=== PATIENT | female | born 1990 | race Caucasian/White ===

== ENCOUNTER → 2021-01-17 16:34 | Outpatient (CLI) | payer MEDICAID, SELFPAY ==
[2021-01-17 15:26] VITALS: BMI 35.5
== END ==
PROVIDERS: PCP Family Medicine; Referring Provider Nurse Practitioner Women's Health; Visit Provider Nurse Practitioner Women's Health
DX: S21.001A Unspecified open wound of right breast, initial encounter (principal)
CPT/HCPCS: 87070; 87077; 87186; 87205

== ENCOUNTER 2021-01-26 09:15 | Outpatient (RCR) | payer MEDICAID, SELFPAY ==
[2021-01-17 15:26] VITALS: BMI 35.5
[2021-01-19 08:11] VITALS: BP 130/68; PULSE 83; RESP 18; TEMP 37; BMI 45.3
[2021-01-19 10:52] LABS: Erythrocyte Sedimentation Rate 11 mm/hr (0-30)
[2021-01-19 10:54] LABS: Absolute Lymphocyte Count 2.29 X10^3/uL (0.83-4.51); Absolute Neutrophil Count 6.8 X10^3/uL (2.0-7.7); Basophil# 0.06 X10^3/uL; Basophil% 0.6 % (0-1); Eosinophil# 0.46 X10^3/uL; Eosinophils% 4.4 % (0-5); Hematocrit 40.3 % (37-47); Hemoglobin 13.6 g/dL (12.0-15.0); Lymphocyte # 2.29 X10^3/ul (0.83-4.51); Lymphocyte % 21.9 % (19-41); Mean Corp Hgb Conc 33.7 g/dL (32-36); Mean Corpuscular Hgb 30.6 pg (27.0-32.0); Mean Corpuscular Volume 90.8 fL (81-99); Mean Platelet Vol. 10.7 fl (6.2-12.0); Monocyte# 0.85 X10^3/uL; Monocyte% 8.1 % (0-10); NRBC Flagged by Analyzer 0 % (0-5); Neutrophil # 6.78 X10^3/uL (2.7-7.7); Neutrophil % 64.6 % (47-70); Platelet Count 337 K/mm3 (150-450); RBC Distribution Width CV 11.6 % (11.6-14.6); RBC Distribution Width SD 38.6 fl (35.1-43.9); Red Blood Count 4.44 M/mm3 (4.2-5.4); White Blood Count 10.5 K/mm3 (4.4-11.0)
--- NOTE | 2021-01-19 12:29 | HP.PCM_ITS ---
History of Present Illness Date of Service: 01/19/21 Chief Complaint: Right breast wound History of Wound: Mariely is a pleasant 30-year-old female who presents to the wound healing center today (01/19/2021) for an initial evaluation of a right breast wound. Her past medical history is unremarkable aside from a mild developmental delay. She has no history of similar or nonhealing wounds. She does not have any history of diabetes or tobacco use. On 01/02/2021, while on vacation in [place], she reported redness and itching of the right breast. She was seen by her women's health provider (KASIA Riley) on 01/04/2021 and was given clotrimazole?betamethasone 1-0.05% to apply twice daily x2 weeks. Within the week that followed, the redness was not improving and a prescription for oral fluconazole was sent. The redness continued to worsen and the area had developed open areas of excoriation at her exam on 01/17/2021 with [facility]. A culture was collected on 01/17/2021. The preliminary results show 2+ GPC possible Enterococcus species and 1+ Staphylococcus species with identification and sensitivity to follow. She was started on Bactrim. Her mother reports that the time of her adoption she was told that the patient has an allergy to sulfa antibiotics. She has not noticed any reaction in the last 2 days with taking Bactrim. The patient has not been using any dressings to the breast, as she was instructed to leave it open to air. She has generally not been wearing a bra, but on the rare occasions that she has there has been nonodorous drainage on the bra. The patient denies fever, chills, nausea, vomiting, or diarrhea. The patient has not had purulent/malodorous drainage from affected area. [facility] Medical History (Updated 01/19/21 @ 12:54 by Ashley Soto NP, [employer] [facility]) Developmental delay, mild Dysmenorrhea Home Medications multivitamin with folic acid 1 tab PO DAILY 12/26/14 [History Last Taken Unknown] norgestimate 0.25 mg-ethinyl estradiol 35 mcg tablet 1 tab PO DAILY #84 tab 02/14/20 [Rx Last Taken Unknown] doxycycline monohydrate 100 mg PO BID 10 Days #20 cap 01/19/21 [Rx Last Taken Unknown] Allergy/AdvReac Type Severity Reaction Status Date / Time Sulfa (Sulfonamide Allergy Unknown Verified 01/17/21 15:22 Antibiotics) Social History current occupational status: employed current occupation: [employer] Smoking Status: Never smoker alcohol intake: never substance use type: does not use seatbelt use: always do you feel safe at home: Yes ROS Constitutional Constitutional: Denies chills, fever(s) or night sweats Eyes Eyes: Denies change in vision or double vision ENT HEENT: Denies lip swelling or tongue swelling Cardiovascular Cardiovascular: Denies chest pain, leg edema or palpitations Respiratory/Chest Respiratory/Chest: Denies cough, shortness of breath at rest, shortness of breath with exertion or wheezing Gastrointestinal Gastrointestinal: Denies diarrhea, nausea or vomiting Genitourinary Genitourinary: Denies dysuria or hematuria Musculoskeletal Musculoskeletal: Denies abnormal gait, extremity pain, muscle weakness, numbness or tingling Integumentary Integumentary: Reports wounds; Denies rash Neurologic Neurologic: Denies abnormal gait, abnormal speech or focal weakness Endocrine Endocrinology: Denies cold intolerance, heat intolerance, polydipsia or polyuria Hematologic/Lymphatic Hematologic/Lymphatic: Denies easy bleeding or easy bruising Vital Signs Vital Signs Vital Signs: 01/19/21 08:11 Temperature 98.6 F Temperature Source Temporal Pulse Rate 83 Respiratory Rate 18 Blood Pressure 130/68 H Blood Pressure Mean 88 Blood Pressure Source Monitor Physical Exam Const alert, no apparent distress and healthy appearing General Appearance: cooperative, comfortable and well kempt HEENT Head and Scalp: normocephalic and atraumatic Eyes EOMs intact bilaterally Neck supple and no JVD Chest Nipple/Areola: No nipple discharge Resp normal respiratory effort, normal air movement and no use of accessory muscles Auscultation: clear to auscultation bilaterally; Negative for crackles, rales, rhonchi or wheezes Cardio regular rate and regular rhythm GI normal to inspection, nondistended, normoactive bowel sounds Extremity normal capillary refill, no joint enlargement, no clubbing, cyanosis or edema, no calf tenderness and no pedal edema Peripheral Pulses: Yes dorsalis pedis pulses present bilateral 2+ Skin Wounds: wounds noted No malodorous, open and surrounding erythema Wound Narrative: The patient has a large wound to the underside of the right breast with the subcutaneous layer exposed, and multiple small skin islands present. There is a small to moderate amount of slough and devitalized tissue present. There is mild warmth to palpation and tenderness to palpation. There is no malodorous drainage or purulent drainage noted. The wound does not have tunneling or undermining. Neuro moves all extremities and no focal motor deficits Psych mental status grossly normal, cooperative and affect normal Debridement Note Debridement Note Post-Debridement Measurements and Additional Note: Post-Debridement Measurements/Treatment - Nurse 1 - General Ulcer Assessment Start: 01/19/21 08:02 Freq: Status: Active Protocol: ANGUS.SULEMA Activity Type Activity Date Activity User E-Sign Co-Sign Detail Recorded Client Recorded Date Recorded By Document 01/19/21 08:11 DL Desktop 01/19/21 08:25 DL 01/19/21 08:11 - Today's Visit Information Type of service Initial Visit Arrival Mode Cane Transfer Assistance Stretcher Patient Identification Verified (Name & Yes ) Patient Requires Transmission-Based No Precautions Height and Weight Height 5 ft Weight 232 lb 7.559 oz Weight in Pounds 232.5 lbs Body Mass Index (BMI) 45.3 BMI Classification Obese BSA - Elizabeth 1.99 Vital Signs Temperature (97.8 F-99.1 F) 98.6 F Temperature Source Temporal Pulse Rate (60-100) 83 Pulse Location Monitor Respiratory Rate (12-18) 18 Respiratory rate source Observation Blood Pressure (90/60-120/80) 130/68 H Blood Pressure Mean 88 Source Monitor Pain Scale: 0-10 Numeric Is Patient Pain Free? Yes Communication Assessment Preferred language Khmer Able to Read Yes Able to Write No Communication Tools None Caregiver Communication Skills No Impairment Impairment Right Hearing Abillity Normal Left Hearing Abillity Normal Visual Assistive Devices Glasses Teaching Assessment Preferences Verbal,Written, Demonstration Barriers to Learning None Readiness To Learn Fair Willingness to Engage in Self Management Med Activies Readiness to Engage in Self Management Med Activities Anxiety Level Calm Cooperation Cooperative Perception Coherent Interest in Health Problem Asks Questions Education Importance Acknowledges Need Does Patient Smoke tobacco or other No substances Smoking Status Never smoker Is Patient Diabetic Yes Functional Assessment Recent Decline in Ability to Perform Denies Any Declines Culture/Jehovah'S Witness/Vice President Mission Integration Cultural/Jehovah'S Witness Needs that may affect No Treatment Plan Would you allow our hospital economic development director to No meet you for the purpose of spiritual/ emotional support? Vice President Mission Integration to contact place of latter-day No Teaching: Wound Center Discharge Instructions -Person Taught Patient *Infection -Person Taught Patient Diagnostic Tests Ordered -Person Taught Patient Dressing Your Wound -Person Taught Patient *Welcome to the Wound Center -Person Taught Family WC - Nurse 1 - General Ulcer Measurement Start: 01/19/21 08:02 Freq: Status: Active Protocol: Activity Type Activity Date Activity User E-Sign Co-Sign Detail Recorded Client Recorded Date Recorded By Document 01/19/21 08:11 DL Desktop 01/19/21 08:25 DL 01/19/21 08:11 Wound Center Nurse 1 #1 R Breast -Current Size (cm) - Length 3.7 -Current Size (cm) - Width 9.6 -Current Size (cm) - Depth 0.2 -Total Square Cm 35.52 -Photo Taken Yes -Exudate Amt Medium -Exudate Type Serosanguineous -Wound Margin Distinct, Outline Attached -Granulation Amt Medium (34-66%) -Necrosis Amt Medium (34-66%) -Necrotic Tissue Type Adherent Slough -Structure Exposed N/A -Texture (Cassie-wound Skin Appearance) Localized Edema ,Scarring -Moisture (Cassie-wound Skin Appearance) No Abnormality -Color (Cassie-wound Skin Appearance) Erythema -Temperature (Cassie-wound Skin No Abnormality Appearance) (Pt Warm) -Tenderness on Palpation (Cassie-wound No Skin Appearance) -Ulcer Cleansing Wound Cleanser -Foul Odor after Cleansing No -Anesthetic Used 4% Lidocaine Solution WC - Nurse 2 - General Ulcer CM Notes Start: 01/19/21 08:02 Freq: Status: Active Protocol: Activity Type Activity Date Activity User E-Sign Co-Sign Detail Recorded Client Recorded Date Recorded By Document 01/19/21 09:24 DL Desktop 01/19/21 09:27 DL 01/19/21 09:24 Wound Center Nurse 2 -Correct Patient Yes -Correct Side, Site, Position Yes -Correct Procedure Yes -Procedure Performed Yes -Type of Procedure Debridement -Clinical Debridement Subcutaneous -Tissue Removed Subcutaneous -Post Debridement (cm) - Length 6 -Post Debridement (cm) - Width 10 -Post Debridement (cm) - Depth 0.1 -Total Square (Post) (cm) 60 -Area of Debridement (cm) - Length 6 -Area of Debridement (cm) - Width 10 -Total Square (Area) (cm) 60 -Tunneling No -Undermining/Tunneling No -Circular Undermining No -Ulcer Cleansing Wound Cleanser -Foul Odor after Cleansing No -Bioengineered Tissue No -Debridement - Open, 1st 20sq cm Yes -Debridement - Subq, 1st 20sq cm Yes -Debridement, SubQ, ea addt'l 20sq cm 2 or part thereof Pain Scale: 0-10 Numeric Is Patient Pain Free? Yes WC - Nurse 3 - General Ulcer D/C NN Start: 01/19/21 08:02 Freq: Status: Active Protocol: Activity Type Activity Date Activity User E-Sign Co-Sign Detail Recorded Client Recorded Date Recorded By Document 01/19/21 09:24 DL Desktop 01/19/21 09:27 DL 01/19/21 09:24 Is Patient Pain Free? Yes Wound Care Nurse 3 #1 R Breast -Ulcer Cleansing Wound Cleanser -Foul Odor after Cleansing No -Primary Dressing Applied Aquacel AG 4x4 -Primary Dressing Covered/Secured with Dry Gauze, Secured with Tape -Aquacel AG 4x4 2 Treatment Response Procedure Tolerated Well WC - Visit Discharge Discharge Condition Stable Ambulatory Status Ambulatory Transportation Private Auto Lab / Micro Data Result Diagrams: 01/19/21 09:30 01/19/21 09:30 Labs: Laboratory Results - last 24 hr 01/19/21 01/19/21 09:30 09:30 WBC 10.5 RBC 4.44 Hgb 13.6 Hct 40.3 MCV 90.8 MCH 30.6 MCHC 33.7 RDW Std Deviation 38.6 RDW Coeff of Alex 11.6 Plt Count 337 MPV 10.7 Immature Gran % (Auto) 0.400 Neut % (Auto) 64.6 Lymph % (Auto) 21.9 George % (Auto) 8.1 Eos % (Auto) 4.4 Baso % (Auto) 0.6 Absolute Neuts (auto) 6.8 Absolute Lymphs (auto) 2.29 Nucleated RBC % 0 ESR 11 Sodium Cancelled Potassium Cancelled Chloride Cancelled Carbon Dioxide Cancelled Anion Gap Cancelled BUN Cancelled Creatinine Cancelled Estim Creat Clear Calc Cancelled Est GFR (MDRD) Af Amer Cancelled Est GFR (MDRD) Non-Af Cancelled BUN/Creatinine Ratio Cancelled Glucose Cancelled Calcium Cancelled Total Bilirubin Cancelled AST Cancelled ALT Cancelled Alkaline Phosphatase Cancelled C-React Prot Ext Range Cancelled Total Protein Cancelled Albumin Cancelled Globulin Cancelled Albumin/Globulin Ratio Cancelled Prealbumin Cancelled Charges/Coding Visit Charges Office Visits / Consults: [id number] OV L4 Est Procedures Integumentary [id number]: [id number] Brittny subq tissue 20 sq cm/< Assessment/Plan Assessment/Plan (1) Open breast wound: CODE(S): Code(s): S21.009A - Unspecified open wound of unspecified breast, initial encounter QUALIFIERS: Encounter type: initial encounter Laterality: right Qualified Code(s): S21.001A - Unspecified open wound of right breast, initial encounter (2) Nonhealing nonsurgical wound with fat layer exposed: CODE(S): Code(s): T14.8XXA - Other injury of unspecified body region, initial encounter PLAN: Debridement performed today in clinic as annotated above. Aquacel Ag applied. At home wound-care instructions: Change Aquacel Ag dressing once daily or more frequently as needed due to contamination. Wash wounds daily with antibacterial soap and water, rinse and dry thoroughly before each dressing change. Keep the dressings clean and dry. Avoid wearing a bra, or other garments that may cause friction against the wound site. Diet: Patient encouraged to increase protein and vitamin C intake. Labs/cultures/imaging: Repeat cultures ordered and collected today after th orough debridement. Bactrim will be discontinued due to possible allergy. Doxycycline 100 mg p.o. twice daily x10 days will be initiated. Antibiotics will be adjusted as needed based on culture results. Routine baseline lab work ordered (CBC D, CMP, ESR, CRP, prealbumin). Follow-up: Return to clinic in 1 week for re-evaluation. Return sooner or report to the emergency room should symptoms worsen, or new symptoms arise. Note: [employer] speech recognition nutritional yeast supervisor software was used to create portions of this document. Sound-alike and misspelled words, as well as other nutritional yeast supervisor errors may be contained in the documentation.
[2021-01-19 15:49] LABS: ALB/GLOB Ratio 0.8 RATIO (0.9-2.4); AST(SGOT) 13 U/L (15-37); Alanine Aminotransfer ALT/SGPT 21 U/L (13-56); Albumin, Serum 3.1 g/dL (3.2-5.0); Alkaline Phosphatase 61 U/L (45-117); Anion Gap 8 (5-15); BUN 15 mg/dL (7-18); BUN/Creat Ratio 18.3 RATIO (10-20); Calcium,Total 9.2 mg/dL (8.5-10.1); Chloride 108 mmol/L (98-107); Creatinine, Serum 0.82 mg/dL (0.55-1.02); EST Glomerular Filtration Rate 88 mL/min (>60); Est Glom Filt Rate - Afr Amer 106 mL/min (>60); Estimated Creatinine Clearance 72.71 ml/min; Globulin 3.9 g/dL (2.2-4.2); Glucose 108 mg/dL (74-106); Potassium 4.1 mmol/L (3.5-5.1); Prealbumin 24.7 mg/dL (20.0-40.0); Sodium Level 140 mmol/L (136-145)
[2021-01-26 09:14] VITALS: BP 140/71; PULSE 76; RESP 16; BMI 45.3
--- NOTE | 2021-01-26 13:05 | PCM.WC.PN ---
History of Present Illness Date of Service: 01/26/21 Chief Complaint: Right breast wound History of Wound: Mariely is a pleasant 30-year-old female who presents to the wound healing center today (01/19/2021) for an initial evaluation of a right breast wound. Her past medical history is unremarkable aside from a mild developmental delay. She has no history of similar or nonhealing wounds. She does not have any history of diabetes or tobacco use. On 01/02/2021, while on vacation in [place], she reported redness and itching of the right breast. She was seen by her women's health provider (KASIA Riley) on 01/04/2021 and was given clotrimazole?betamethasone 1-0.05% to apply twice daily x2 weeks. Within the week that followed, the redness was not improving and a prescription for oral fluconazole was sent. The redness continued to worsen and the area had developed open areas of excoriation at her exam on 01/17/2021 with Pennie. A culture was collected on 01/17/2021. The preliminary results show 2+ GPC possible Enterococcus species and 1+ Staphylococcus species with identification and sensitivity to follow. She was started on Bactrim. Her mother reports that the time of her adoption she was told that the patient has an allergy to sulfa antibiotics. She has not noticed any reaction in the last 2 days with taking Bactrim. The patient had not been using any dressings to the breast, as she was instructed to leave it open to air. She has generally not been wearing a bra, but on the rare occasions that she has there has been nonodorous drainage on the bra. The patient denies fever, chills, nausea, vomiting, or diarrhea. The patient has not had purulent/malodorous drainage from affected area. Subjective Subjective Mariely is seen as a courtesy visit today for Ashley Soto CNP. She has been doing well with dressing changes and has noticed improvement in the ulcer/wound. She did not receive dressing supplies but has been continuing to dress the wound/ulcer as instructed with Aquacel Ag and gauze. She continues to have moderate to heavy drainage. She was started on doxycycline and is tolerating treatment with this well. She had positive wound culture results of Staph. lugdensis and staph epidermidis as well as corynebacterium. SHe denies fever, chills, increased pain or erythema. Objective Data Objective Data Vital Signs: Vital Signs Temp Pulse Resp BP 98.6 F 76 16 140/71 H 01/19/21 08:11 01/26/21 09:14 01/26/21 09:14 01/26/21 09:14 Weight: 105.448 kg Body Mass Index (BMI) 45.3 Lab / Micro Data Result Diagrams: 01/19/21 09:30 01/19/21 14:23 Micro: Microbiology 01/19/21 08:50 Wound Abcess - Breast Gram Stain - Final 01/19/21 08:50 Wound Abcess - Breast Wound Culture - Final Staphylococcus epidermidis Staphylococcus lugdunensis Corynebacterium amycolatum 01/19/21 08:50 Wound Abcess - Breast Anaerobic Culture - Final No anaerobic bacteria isolated. Physical Exam Const alert, oriented x3 and no apparent distress Nutritional Appearance: obese HEENT normocephalic and head/scalp atraumatic Resp normal respiratory effort and normal air movement Cardio regular rate and regular rhythm Skin Wounds: wounds noted no odor and open Wound Narrative: as noted in clinical panel Psych affect normal Appearance: grossly normal and appropriate Debridement Note Debridement Note Post-Debridement Measurements and Additional Note: Post-Debridement Measurements/Treatment WC - Nurse 1 - General Ulcer Assessment Start: 01/19/21 08:02 Freq: Status: Active Protocol: ANGUS.LOWEXT Activity Type Activity Date Activity User E-Sign Co-Sign Detail Recorded Client Recorded Date Recorded By Document 01/19/21 08:11 DL Desktop 01/19/21 08:25 DL Document 01/26/21 09:14 [id number] 01/26/21 09:26 01/19/21 01/26/21 08:11 09:14 - Today's Visit Information Type of service Initial Visit Follow-up Visit (Physician/SET UP MOLD TECHNICIAN ) Arrival Mode Cane Ambulatory Transfer Assistance Stretcher Patient Identification Verified (Name & Yes Yes ) Patient Requires Transmission-Based No No Precautions Height and Weight Height 5 ft Weight 105.448 kg Weight in Pounds 232.5 lbs Body Mass Index (BMI) 45.3 45.3 BMI Classification Obese Obese BSA - Elizabeth 1.99 Vital Signs Temperature (97.8 F-99.1 F) 98.6 F Temperature Source Temporal Pulse Rate (60-100) 83 76 Pulse Location Monitor Monitor Respiratory Rate (12-18) 18 16 Respiratory rate source Observation Observation Blood Pressure (90/60-120/80) 130/68 H 140/71 H Blood Pressure Mean (mm Hg) 88 94 Source Monitor Monitor Position Semi-Fowlers Blood Pressure Location Right Forearm History Since Last Visit- (Skip if this is Patient's initial visit) Have you changed medications since your No last visit? Any new allergies or adverse reactions No Had a fall/change in ADL's that may No increase risk of falls Signs or symptoms of abuse and/or No neglect since last visit Has dressing in place as prescribed Yes Has compression in place as prescribed N/A Has offloadiing in place as prescribed N/A Experienced any changes in pain level or No management Left Footwear Slipper Right Footwear Regular Shoe Pain Scale: 0-10 Numeric Is Patient Pain Free? Yes Yes Communication Assessment Preferred language Martiniquais Able to Read Yes Able to Write No Communication Tools None Caregiver Communication Skills No Impairment Impairment Right Hearing Abillity Normal Left Hearing Abillity Normal Visual Assistive Devices Glasses Teaching Assessment Preferences Verbal,Written, Demonstration Barriers to Learning None Readiness To Learn Fair Willingness to Engage in Self Management Med Activies Readiness to Engage in Self Management Med Activities Anxiety Level Calm Cooperation Cooperative Perception Coherent Interest in Health Problem Asks Questions Education Importance Acknowledges Need Does Patient Smoke tobacco or other No substances Smoking Status Never smoker Is Patient Diabetic Yes Functional Assessment Recent Decline in Ability to Perform Denies Any Declines Culture/Islam/Training Director Cultural/Islam Needs that may affect No Treatment Plan Would you allow our hospital snowsport instructor to No meet you for the purpose of spiritual/ emotional support? Training Director to contact place of yarsani No Teaching: Wound Center Discharge Instructions -Person Taught Patient *Infection -Person Taught Patient Diagnostic Tests Ordered -Person Taught Patient Dressing Your Wound -Person Taught Patient *Welcome to the Wound Center -Person Taught Family WC - Nurse 1 - General Ulcer Measurement Start: 01/19/21 08:02 Freq: Status: Active Protocol: Activity Type Activity Date Activity User E-Sign Co-Sign Detail Recorded Client Recorded Date Recorded By Document 01/19/21 08:11 DL Desktop 01/19/21 08:25 DL Document 01/26/21 09:14 MELVINA [id number] 01/26/21 09:26 MELVINA 01/19/21 01/26/21 08:11 09:14 Wound Center Nurse 1 #1 R Breast -Combined with other wound No -Current Size (cm) - Length 3.7 2.5 -Current Size (cm) - Width 9.6 7.9 -Current Size (cm) - Depth 0.2 0.1 -Total Square Cm 35.52 19.75 -Photo Taken Yes No -Epithelialization Small 1-33% -Tunneling No -Undermining/Tunneling No -Circular Undermining No -Exudate Amt Medium Medium -Exudate Type Serosanguineous Serosanguineous -Wound Margin Distinct, Flat & Intact Outline Attached -Granulation Amt Medium (34-66%) Large (67-100%) -Granulation Quality Red -Slough/Fibrin No -Necrosis Amt Medium (34-66%) Small (1-33%) -Necrotic Tissue Type Adherent Slough Adherent Slough -Structure Exposed N/A N/A -Texture (Cassie-wound Skin Appearance) Localized Edema Assessed ,Scarring -Moisture (Cassie-wound Skin Appearance) No Abnormality Assessed -Color (Cassie-wound Skin Appearance) Erythema No Abnormality -Temperature (Cassie-wound Skin No Abnormality No Abnormality Appearance) (Pt Warm) (Pt Warm) -Tenderness on Palpation (Cassie-wound No No Skin Appearance) -Ulcer Cleansing Wound Cleanser Rinsed/ Irrigated with Saline -Foul Odor after Cleansing No No -Anesthetic Used 4% Lidocaine 4% Lidocaine Solution Solution Lower Limb Edema Present NA WC - Nurse 2 - General Ulcer CM Notes Start: 01/19/21 08:02 Freq: Status: Active Protocol: Activity Type Activity Date Activity User E-Sign Co-Sign Detail Recorded Client Recorded Date Recorded By Document 01/19/21 09:24 DL Desktop 01/19/21 09:27 DL Document 01/26/21 09:37 [id number] 01/26/21 09:47 01/19/21 01/26/21 09:24 09:37 Wound Center Nurse 2 #1 R Breast -Time 09:38 -Correct Patient Yes Yes -Correct Side, Site, Position Yes Yes -Correct Procedure Yes Yes -Procedure Performed Yes Yes -Type of Procedure Debridement Debridement -Clinical Debridement Subcutaneous Subcutaneous -Tissue Removed Subcutaneous Subcutaneous -Post Debridement (cm) - Length 6 2.4 -Post Debridement (cm) - Width 10 7.8 -Post Debridement (cm) - Depth 0.1 0.1 -Total Square (Post) (cm) 60 18.72 -Area of Debridement (cm) - Length 6 2.4 -Area of Debridement (cm) - Width 10 7.8 -Total Square (Area) (cm) 60 18.72 -Tunneling No No -Undermining/Tunneling No No -Circular Undermining No No -Wound/Ulcer Outcome Not Healed -Ulcer Cleansing Wound Cleanser Rinsed/ Irrigated with Saline -Foul Odor after Cleansing No No -Bioengineered Tissue No No -Bleeding Controlled with Pressure -Type of Offloading Total Contact Cast (TCC) - Left ($) -Treatment Response Procedure Tolerated Well -Debridement - Open, 1st 20sq cm Yes -Debridement - Subq, 1st 20sq cm Yes Yes -Debridement, SubQ, ea addt'l 20sq cm 2 or part thereof Pain Scale: 0-10 Numeric Is Patient Pain Free? Yes Yes - Nurse 3 - General Ulcer D/C NN Start: 01/19/21 08:02 Freq: Status: Active Protocol: Activity Type Activity Date Activity User E-Sign Co-Sign Detail Recorded Client Recorded Date Recorded By Document 01/19/21 09:24 DL Desktop 01/19/21 09:27 DL Document 01/26/21 09:47 JF [id number] 01/26/21 09:48 JF Edit Result 01/26/21 09:47 JF (1) [id number] 01/26/21 09:49 JF (1) #1 R Breast - Aquacel AG 4x4 1 => 2 01/19/21 01/26/21 09:24 09:47 Pain Scale: 0-10 Numeric Is Patient Pain Free? Yes Yes Wound Care Nurse 3 #1 R Breast -Ulcer Cleansing Wound Cleanser Rinsed/ Irrigated with Saline -Foul Odor after Cleansing No No -Primary Dressing Applied Aquacel AG 4x4 Aquacel AG 4x4 -Primary Dressing Covered/Secured with Dry Gauze, Dry Gauze, Secured with Secured with Tape Tape -Aquacel AG 4x4 2 2 Treatment Response Procedure Tolerated Well WC - Visit Discharge Discharge Condition Stable Stable Ambulatory Status Ambulatory Ambulatory Transportation Private Auto Private Auto Accompanied by MOTHER Medication Reconcilliation completed & Yes provided to patient/care provider Wound debrided: right breast Laterality: Right Type of Debridement: Excisional debridement Anesthesia Used: 5% Lidocaine Gel Depth: Down to and including healthy tissue and in the subcutaneous layer Percentage of wound debrided: 100 Instrument Used: 5mm curette Tissue Removed: Yellow slough, devitalized tissue Severity: Fat Layer Exposed Amount of bleeding with debridement: Mild Bleeding Controlled with: Compression and gauze Patient tolerated procedure: Patient tolerated procedure well Assessment/Plan Assessment/Plan (1) Abscess of skin: CODE(S): L02.91 - Cutaneous abscess, unspecified QUALIFIERS: Site of cutaneous abscess of trunk: chest wall Site of cutaneous abscess: trunk Qualified Code(s): L02.213 - Cutaneous abscess of chest wall (2) Open breast wound: CODE(S): S21.009A - Unspecified open wound of unspecified breast, initial encounter QUALIFIERS: Encounter type: initial encounter Laterality: right Qualified Code(s): S21.001A - Unspecified open wound of right breast, initial encounter (3) Nonhealing nonsurgical wound with fat layer exposed: CODE(S): T14.8XXA - Other injury of unspecified body region, initial encounter PLAN: PLAN:?Debridement performed today in clinic as annotated above.? Aquacel Ag applied. At home wound-care instructions: Change Aquacel Ag dressing once daily or more frequently as needed due to contamination. Wash wounds daily with antibacterial soap and water, rinse and dry thoroughly before each dressing change.? Keep the dressings clean and dry. Avoid wearing a bra, or other garments that may cause friction against the wound site. Diet: Patient encouraged to increase protein and vitamin C intake.? Labs/cultures/imaging: Culture results reviewed with patient and her mother. Doxycycline 100 mg p.o. twice daily x10 days will be completed.? Antibiotics will be adjusted as needed based on culture results.? Routine baseline lab work ordered (CBC D, CMP, ESR, CRP, prealbumin). Follow-up: Return to clinic in 1 week for re-evaluation.? Return sooner or report to the emergency room should symptoms worsen, or new symptoms arise.
== END 2021-01-29 23:59 | disposition home or self-care (01) ==
LOC: WC 09:15
PROVIDERS: PCP Family Medicine; Referring Provider Nurse Practitioner Women's Health; Visit Provider Nurse Practitioner Family
DX: L02.213 Cutaneous abscess of chest wall (principal); T14.8XXA Other injury of unspecified body region, initial encounter; R62.50 Unspecified lack of expected normal physiological development in childhood
CPT/HCPCS: 11042; 11045; 29445; 36415; 80053; 84134; 85025; 85652; 86140; 87070; 87075; 87077; 87186; 87205; 97597; 99213; G0463

== ENCOUNTER 2021-02-23 09:00 | Outpatient (RCR) | payer MEDICAID, SELFPAY ==
[2021-01-30 00:45] VITALS: BP 140/71; PULSE 76; RESP 16; TEMP 37
[2021-02-02 09:35] VITALS: BP 138/82; PULSE 84; RESP 15; TEMP 36.4; BMI 45.3
--- NOTE | 2021-02-02 14:20 | PCM.WC.PN ---
History of Present Illness Date of Service: 02/02/21 Chief Complaint: Right breast wound History of Wound: Mraiely is a pleasant 30-year-old female who presents to the wound healing center today (01/19/2021) for an initial evaluation of a right breast wound. Her past medical history is unremarkable aside from a mild developmental delay. She has no history of similar or nonhealing wounds. She does not have any history of diabetes or tobacco use. On 01/02/2021, while on vacation in [place], she reported redness and itching of the right breast. She was seen by her women's health provider (KASIA Riley) on 01/04/2021 and was given clotrimazole?betamethasone 1-0.05% to apply twice daily x2 weeks. Within the week that followed, the redness was not improving and a prescription for oral fluconazole was sent. The redness continued to worsen and the area had developed open areas of excoriation at her exam on 01/17/2021 with Pennie. A culture was collected on 01/17/2021. The preliminary results show 2+ GPC possible Enterococcus species and 1+ Staphylococcus species with identification and sensitivity to follow. She was started on Bactrim. Her mother reports that the time of her adoption she was told that the patient has an allergy to sulfa antibiotics. She has not noticed any reaction in the last 2 days with taking Bactrim. The patient had not been using any dressings to the breast, as she was instructed to leave it open to air. She has generally not been wearing a bra, but on the rare occasions that she has there has been nonodorous drainage on the bra. The patient denies fever, chills, nausea, vomiting, or diarrhea. The patient has not had purulent/malodorous drainage from affected area. Progress of Wound: Mariely returns today for a follow-up visit. Her ulcer is significantly improved in size and appearance. She has been compliant with wound care instructions, and is tolerating Aquacel Ag dressings well. She has completed her course of doxycycline. The patient denies fever, chills, nausea, vomiting, or diarrhea. The patient has not had increased redness, swelling, or purulent/malodorous drainage from affected area. Objective Data Objective Data Vital Signs: Vital Signs Temp Pulse Resp BP 97.6 F L 84 15 138/82 H 02/02/21 09:35 02/02/21 09:35 02/02/21 09:35 02/02/21 09:35 Weight: 232 lb 7.559 oz Body Mass Index (BMI) 45.3 Charges/Coding Procedures Integumentary 111xxx-113xx: 12752 Brittny subq tissue 20 sq cm/< Physical Exam Const alert, no apparent distress and healthy appearing General Appearance: cooperative, comfortable and well kempt Nutritional Appearance: obese HEENT Head and Scalp: normocephalic and atraumatic Neck supple Chest Nipple/Areola: No nipple discharge Resp normal respiratory effort Extremity normal capillary refill, no joint enlargement, no clubbing, cyanosis or edema, no calf tenderness and no pedal edema Peripheral Pulses: Yes dorsalis pedis pulses present bilateral 2+ Skin Wounds: wounds noted No malodorous, open and surrounding erythema Wound Narrative: Patient's right breast wound is greatly improved today. Subcutaneous layer exposed, and multiple small skin islands present. There is a small amount of slough and devitalized tissue present. There is no warmth to palpation. She has mild tenderness to palpation. There is no malodorous drainage or purulent drainage noted. The wound does not have tunneling or undermining. Neuro moves all extremities Psych mental status grossly normal, cooperative and affect normal Debridement Note Debridement Note Post-Debridement Measurements and Additional Note: Post-Debridement Measurements/Treatment WC - Nurse 1 - General Ulcer Assessment Start: 02/02/21 09:35 Freq: Status: Active Protocol: ROMEO Activity Type Activity Date Activity User E-Sign Co-Sign Detail Recorded Client Recorded Date Recorded By Document 02/02/21 09:35 MS [id number] 02/02/21 09:40 MS 02/02/21 09:35 - Today's Visit Information Type of service Follow-up Visit (Physician/CATALYST CONCENTRATION OPERATOR ) Arrival Mode Ambulatory Patient Identification Verified (Name & Yes ) Patient Requires Transmission-Based No Precautions Safety Precautions NA Height and Weight Body Mass Index (BMI) 45.3 BMI Classification Obese Vital Signs Temperature (97.8 F-99.1 F) 97.6 F L Temperature Source Temporal Pulse Rate (60-100) 84 Pulse Location Monitor Respiratory Rate (12-18) 15 Blood Pressure (90/60-120/80) 138/82 H Blood Pressure Mean (mm Hg) 100 Source Monitor Position Sitting Blood Pressure Location Left Arm History Since Last Visit- (Skip if this is Patient's initial visit) Have you changed medications since your No last visit? Any new allergies or adverse reactions No Had a fall/change in ADL's that may No increase risk of falls Signs or symptoms of abuse and/or No neglect since last visit Have you been in the hospital since your No last visit? Has dressing in place as prescribed Yes Has compression in place as prescribed N/A Has offloadiing in place as prescribed N/A Experienced any changes in pain level or No management Left Footwear Regular Shoe Right Footwear Regular Shoe WC - Nurse 1 - General Ulcer Measurement Start: 02/02/21 09:35 Freq: Status: Active Protocol: Activity Type Activity Date Activity User E-Sign Co-Sign Detail Recorded Client Recorded Date Recorded By Document 02/02/21 09:35 MS [id number] 02/02/21 09:40 MS 02/02/21 09:35 Wound Center Nurse 1 #1 R Breast -Current Size (cm) - Length 1 -Current Size (cm) - Width 1.5 -Current Size (cm) - Depth 0.1 -Total Square Cm 1.5 -Exudate Amt Medium -Exudate Type Serosanguineous -Wound Margin Distinct, Outline Attached -Granulation Amt Medium (34-66%) -Granulation Quality Red -Slough/Fibrin Yes -Necrosis Amt Medium (34-66%) -Necrotic Tissue Type Adherent Slough -Texture (Cassie-wound Skin Appearance) No Abnormality -Moisture (Cassie-wound Skin Appearance) No Abnormality -Color (Cassie-wound Skin Appearance) No Abnormality -Temperature (Cassie-wound Skin No Abnormality Appearance) (Pt Warm) -Ulcer Cleansing Rinsed/ Irrigated with Saline -Foul Odor after Cleansing No -Anesthetic Used 5% Lidocaine Gel WC - Nurse 2 - General Ulcer CM Notes Start: 02/02/21 09:35 Freq: Status: Active Protocol: Activity Type Activity Date Activity User E-Sign Co-Sign Detail Recorded Client Recorded Date Recorded By Document 02/02/21 12:15 PL [id number] 02/02/21 12:20 PL 02/02/21 12:15 Wound Center Nurse 2 -Time 09:50 -Correct Patient Yes -Correct Side, Site, Position Yes -Correct Procedure Yes -Procedure Performed Yes -Type of Procedure Debridement -Clinical Debridement Subcutaneous -Tissue Removed Subcutaneous -Post Debridement (cm) - Length 1 -Post Debridement (cm) - Width 1.5 -Post Debridement (cm) - Depth 0.1 -Total Square (Post) (cm) 1.5 -Area of Debridement (cm) - Length 1 -Area of Debridement (cm) - Width 1.5 -Total Square (Area) (cm) 0 -Ulcer Cleansing Rinsed/ Irrigated with Saline -Foul Odor after Cleansing No -Bioengineered Tissue No -Debridement - Subq, 1st 20sq cm Yes Pain Scale: 0-10 Numeric Is Patient Pain Free? Yes WC - Nurse 3 - General Ulcer D/C NN Start: 02/02/21 09:35 Freq: Status: Active Protocol: Activity Type Activity Date Activity User E-Sign Co-Sign Detail Recorded Client Recorded Date Recorded By Document 02/02/21 10:07 MS [id number] 02/02/21 10:08 MS 02/02/21 10:07 Wound Care Nurse 3 #1 R Breast -Ulcer Cleansing Rinsed/ Irrigated with Saline -Primary Dressing Applied Aquacel AG 4x4 -Primary Dressing Covered/Secured with Dry Gauze, Secured with Tape -Aquacel AG 4x4 1 WC - Visit Discharge Discharge Condition Stable Ambulatory Status Ambulatory Transportation Private Auto Medication Reconcilliation completed & No provided to patient/care provider Clinical Summary of Care Provided Yes Wound debrided: Right breast Laterality: Right Type of Debridement: Excisional debridement Anesthesia Used: 4% Lidocaine Solution and Cetacaine Depth: in the subcutaneous layer Percentage of wound debrided: 100 Instrument Used: 5mm curette Tissue Removed: Slough and devitalized tissue Severity: Fat Layer Exposed Amount of bleeding with debridement: Mild Bleeding Controlled with: Pressure Patient tolerated procedure: Patient tolerated procedure well Assessment/Plan Assessment/Plan (1) Open breast wound: CODE(S): S21.009A - Unspecified open wound of unspecified breast, initial encounter QUALIFIERS: Encounter type: initial encounter Laterality: right Qualified Code(s): S21.001A - Unspecified open wound of right breast, initial encounter (2) Nonhealing nonsurgical wound with fat layer exposed: CODE(S): T14.8XXA - Other injury of unspecified body region, initial encounter PLAN: Debridement performed today in clinic as annotated above. Aquacel Ag applied. At home wound-care instructions: Change Aquacel Ag dressing once daily or more frequently as needed due to contamination. Wash wounds daily with antibacterial soap and water, rinse and dry thoroughly before each dressing change. Keep the dressings clean and dry. Avoid wearing a bra, or other garments that may cause friction against the wound site. Diet: Patient encouraged to increase protein and vitamin C intake. Labs/cultures/imaging: Her culture collected on 01/19/21 was positive for rare Staph epidermidis, rare Staphylococcus lugdunensis, and rare corynebacterium amycolatum. A 10-day course of doxycycline was completed. There are no clinical signs of infection today. Her lab work was significant for the following: CRP: 22.10 (H) Follow-up: Return to clinic in 1 week for re-evaluation. Return sooner or report to the emergency room should symptoms worsen, or new symptoms arise. Note: [employer] speech recognition hospital insurance representative software was used to create portions of this document. Sound-alike and misspelled words, as well as other hospital insurance representative errors may be contained in the documentation.
[2021-02-09 09:38] VITALS: BP 131/68; PULSE 62; TEMP 36.4; BMI 45.3
--- NOTE | 2021-02-09 12:01 | PCM.WC.PN ---
History of Present Illness Date of Service: 02/09/21 Chief Complaint: Right breast wound History of Wound: Mariely is a pleasant 30-year-old female who presents to the wound healing center today (01/19/2021) for an initial evaluation of a right breast wound. Her past medical history is unremarkable aside from a mild developmental delay. She has no history of similar or nonhealing wounds. She does not have any history of diabetes or tobacco use. On 01/02/2021, while on vacation in [place], she reported redness and itching of the right breast. She was seen by her women's health provider (KASIA Riley) on 01/04/2021 and was given clotrimazole?betamethasone 1-0.05% to apply twice daily x2 weeks. Within the week that followed, the redness was not improving and a prescription for oral fluconazole was sent. The redness continued to worsen and the area had developed open areas of excoriation at her exam on 01/17/2021 with [facility]. A culture was collected on 01/17/2021. The preliminary results show 2+ GPC possible Enterococcus species and 1+ Staphylococcus species with identification and sensitivity to follow. She was started on Bactrim. Her mother reports that the time of her adoption she was told that the patient has an allergy to sulfa antibiotics. She has not noticed any reaction in the last 2 days with taking Bactrim. The patient had not been using any dressings to the breast, as she was instructed to leave it open to air. She has generally not been wearing a bra, but on the rare occasions that she has there has been nonodorous drainage on the bra. The patient denies fever, chills, nausea, vomiting, or diarrhea. The patient has not had purulent/malodorous drainage from affected area. Progress of Wound: Mariely returns today for a follow-up visit. She is accompanied by her mother. Her ulcer is significantly improved in size and appearance. She has been compliant with wound care instructions, and is tolerating Aquacel Ag dressings well. She has completed a course of doxycycline. The patient denies fever, chills, nausea, vomiting, or diarrhea. The patient has not had increased redness, swelling, or purulent/malodorous drainage from affected area. Objective Data Objective Data Vital Signs: Vital Signs Temp Pulse Resp BP 97.6 F L 62 15 131/68 H 02/09/21 09:38 02/09/21 09:38 02/02/21 09:35 02/09/21 09:38 Weight: 232 lb 7.559 oz Body Mass Index (BMI) 45.3 Charges/Coding Procedures Integumentary 111xxx-113xx: [id number] Brittny subq tissue 20 sq cm/< Physical Exam Const alert, no apparent distress and healthy appearing General Appearance: cooperative, comfortable and well kempt Nutritional Appearance: obese HEENT Head and Scalp: normocephalic and atraumatic Neck supple Chest Nipple/Areola: No nipple discharge Resp normal respiratory effort Extremity Peripheral Pulses: Yes dorsalis pedis pulses present bilateral 2+ Skin Wounds: wounds noted No malodorous, open and No surrounding erythema Wound Narrative: Patient's right breast wound is greatly improved today. Subcutaneous layer exposed. There is a scant amount of slough and devitalized tissue present. There is no warmth to palpation. She has mild tenderness to palpation, though this is much improved from last week. There is no malodorous drainage or purulent drainage noted. The wound does not have tunneling or undermining. Neuro moves all extremities Psych mental status grossly normal, cooperative and affect normal Debridement Note Debridement Note Post-Debridement Measurements and Additional Note: Post-Debridement Measurements/Treatment WC - Nurse 1 - General Ulcer Assessment Start: 02/02/21 09:35 Freq: Status: Active Protocol: WC.LOWEXT Activity Type Activity Date Activity User E-Sign Co-Sign Detail Recorded Client Recorded Date Recorded By Document 02/02/21 09:35 MS [id number] 02/02/21 09:40 MS Document 02/09/21 09:38 KR [id number] 02/09/21 09:39 KR 02/02/21 02/09/21 09:35 09:38 - Today's Visit Information Type of service Follow-up Visit Follow-up Visit (Physician/AIRPORT DUTY MANAGER (Physician/AIRPORT DUTY MANAGER ) ) Arrival Mode Ambulatory Ambulatory Patient Identification Verified (Name & Yes Yes ) Patient Requires Transmission-Based No Precautions Safety Precautions NA Height and Weight Body Mass Index (BMI) 45.3 45.3 BMI Classification Obese Obese Vital Signs Temperature (97.8 F-99.1 F) 97.6 F L 97.6 F L Temperature Source Temporal Temporal Pulse Rate (60-100) 84 62 Pulse Location Monitor Monitor Respiratory Rate (12-18) 15 Blood Pressure (90/60-120/80) 138/82 H 131/68 H Blood Pressure Mean (mm Hg) 100 89 Source Monitor Monitor Position Sitting Semi-Fowlers Blood Pressure Location Left Arm Left Arm History Since Last Visit- (Skip if this is Patient's initial visit) Have you changed medications since your No No last visit? Any new allergies or adverse reactions No No Had a fall/change in ADL's that may No No increase risk of falls Signs or symptoms of abuse and/or No No neglect since last visit Have you been in the hospital since your No No last visit? Has dressing in place as prescribed Yes Yes Has compression in place as prescribed N/A N/A Has offloadiing in place as prescribed N/A N/A Experienced any changes in pain level or No No management Left Footwear Regular Shoe Regular Shoe Right Footwear Regular Shoe Regular Shoe Pain Scale: 0-10 Numeric Is Patient Pain Free? Yes WC - Nurse 1 - General Ulcer Measurement Start: 02/02/21 09:35 Freq: Status: Active Protocol: Activity Type Activity Date Activity User E-Sign Co-Sign Detail Recorded Client Recorded Date Recorded By Document 02/02/21 09:35 MS [id number] 02/02/21 09:40 MS Document 02/09/21 09:38 KR [id number] 02/09/21 09:39 KR 02/02/21 02/09/21 09:35 09:38 Wound Center Nurse 1 #1 R Breast -Current Size (cm) - Length 1 0.6 -Current Size (cm) - Width 1.5 3 -Current Size (cm) - Depth 0.1 0.1 -Total Square Cm 1.5 1.8 -Exudate Amt Medium Small -Exudate Type Serosanguineous Serosanguineous -Wound Margin Distinct, Distinct, Outline Outline Attached Attached -Granulation Amt Medium (34-66%) Medium (34-66%) -Granulation Quality Red Red -Slough/Fibrin Yes -Necrosis Amt Medium (34-66%) -Necrotic Tissue Type Adherent Slough -Texture (Cassie-wound Skin Appearance) No Abnormality Assessed, Scarring -Moisture (Cassie-wound Skin Appearance) No Abnormality No Abnormality, Assessed -Color (Cassie-wound Skin Appearance) No Abnormality -Temperature (Cassie-wound Skin No Abnormality No Abnormality Appearance) (Pt Warm) (Pt Warm) -Tenderness on Palpation (Cassie-wound No Skin Appearance) -Ulcer Cleansing Rinsed/ Rinsed/ Irrigated with Irrigated with Saline Saline -Foul Odor after Cleansing No No -Anesthetic Used 5% Lidocaine 5% Lidocaine Gel Gel - Nurse 2 - General Ulcer CM Notes Start: 02/02/21 09:35 Freq: Status: Active Protocol: Activity Type Activity Date Activity User E-Sign Co-Sign Detail Recorded Client Recorded Date Recorded By Document 02/02/21 12:15 PL [id number] 02/02/21 12:20 PL 02/02/21 12:15 Wound Center Nurse 2 -Time 09:50 -Correct Patient Yes -Correct Side, Site, Position Yes -Correct Procedure Yes -Procedure Performed Yes -Type of Procedure Debridement -Clinical Debridement Subcutaneous -Tissue Removed Subcutaneous -Post Debridement (cm) - Length 1 -Post Debridement (cm) - Width 1.5 -Post Debridement (cm) - Depth 0.1 -Total Square (Post) (cm) 1.5 -Area of Debridement (cm) - Length 1 -Area of Debridement (cm) - Width 1.5 -Total Square (Area) (cm) 0 -Ulcer Cleansing Rinsed/ Irrigated with Saline -Foul Odor after Cleansing No -Bioengineered Tissue No -Debridement - Subq, 1st 20sq cm Yes Pain Scale: 0-10 Numeric Is Patient Pain Free? Yes - Nurse 3 - General Ulcer D/C NN Start: 02/02/21 09:35 Freq: Status: Active Protocol: Activity Type Activity Date Activity User E-Sign Co-Sign Detail Recorded Client Recorded Date Recorded By Document 02/02/21 10:07 MS [id number] 02/02/21 10:08 MS 02/02/21 10:07 Wound Care Nurse 3 #1 R Breast -Ulcer Cleansing Rinsed/ Irrigated with Saline -Primary Dressing Applied Aquacel AG 4x4 -Primary Dressing Covered/Secured with Dry Gauze, Secured with Tape -Aquacel AG 4x4 1 WC - Visit Discharge Discharge Condition Stable Ambulatory Status Ambulatory Transportation Private Auto Medication Reconcilliation completed & No provided to patient/care provider Clinical Summary of Care Provided Yes Wound debrided: Right breast Laterality: Right Type of Debridement: Excisional debridement Anesthesia Used: 4% Lidocaine Solution and Cetacaine Depth: in the subcutaneous layer Percentage of wound debrided: 100 Instrument Used: 3mm curette Tissue Removed: Slough and devitalized tissue Severity: Fat Layer Exposed Amount of bleeding with debridement: Mild Bleeding Controlled with: Pressure Patient tolerated procedure: Patient tolerated procedure well Assessment/Plan Assessment/Plan (1) Open breast wound: CODE(S): S21.009A - Unspecified open wound of unspecified breast, initial encounter QUALIFIERS: Encounter type: initial encounter Laterality: right Qualified Code(s): S21.001A - Unspecified open wound of right breast, initial encounter (2) Nonhealing nonsurgical wound with fat layer exposed: CODE(S): T14.8XXA - Other injury of unspecified body region, initial encounter PLAN: Debridement performed today in clinic as annotated above. Aquacel Ag applied. At home wound-care instructions: Change Aquacel Ag dressing once daily or more frequently as needed due to contamination. Wash wounds daily with antibacterial soap and water, rinse and dry thoroughly before each dressing change. Keep the dressings clean and dry. Allow warm water to hit the right breast scar tissue in the shower, and massage gently. Avoid wearing a bra, or other garments that may cause friction against the wound site. Diet: Patient encouraged to increase protein and vitamin C intake. Labs/cultures/imaging: Her culture collected on 01/19/21 was positive for rare Staph epidermidis, rare Staphylococcus lugdunensis, and rare corynebacterium amycolatum. A 10-day course of doxycycline was completed. There are no clinical signs of infection today. Her lab work was significant for the following: CRP: 22.10 (H) Follow-up: Return to clinic in 2 weeks for re-evaluation. Return sooner or report to the emergency room should symptoms worsen, or new symptoms arise. Note: Potential speech recognition veneer sheet repairer software was used to create portions of this document. Sound-alike and misspelled words, as well as other veneer sheet repairer errors may be contained in the documentation.
[2021-02-23 09:22] VITALS: BP 111/89; PULSE 76; RESP 16; BMI 45.3
--- NOTE | 2021-02-23 10:30 | PN.PCM_ITS ---
History of Present Illness Date of Service: 02/23/21 Chief Complaint: Right breast wound History of Wound: Mariely is a pleasant 30-year-old female who presents to the wound healing center today (01/19/2021) for an initial evaluation of a right breast wound. Her past medical history is unremarkable aside from a mild developmental delay. She has no history of similar or nonhealing wounds. She does not have any history of diabetes or tobacco use. On 01/02/2021, while on vacation in [place], she reported redness and itching of the right breast. She was seen by her women's health provider (KASIA Riley) on 01/04/2021 and was given clotrimazole?betamethasone 1-0.05% to apply twice daily x2 weeks. Within the week that followed, the redness was not improving and a prescription for oral fluconazole was sent. The redness continued to worsen and the area had developed open areas of excoriation at her exam on 01/17/2021 with Pennie. A culture was collected on 01/17/2021. The preliminary results show 2+ GPC possible Enterococcus species and 1+ Staphylococcus species with identification and sensitivity to follow. She was started on Bactrim. Her mother reports that the time of her adoption she was told that the patient has an allergy to sulfa antibiotics. She has not noticed any reaction in the last 2 days with taking Bactrim. The patient had not been using any dressings to the breast, as she was instructed to leave it open to air. She has generally not been wearing a bra, but on the rare occasions that she has there has been nonodorous drainage on the bra. The patient denies fever, chills, nausea, vomiting, or diarrhea. The patient has not had purulent/malodorous drainage from affected area. Progress of Wound: Mariely returns today for a wound evaluation. She is accompanied by her mother. She has been compliant with wound care instructions. She denies fever, chills, nausea, vomiting. The patient has not had increased redness, swelling, or purulent/malodorous drainage from affected area. Her ulcer is healed today. Objective Data Objective Data Vital Signs: Vital Signs Temp Pulse Resp BP 97.6 F L 76 16 111/89 H 02/09/21 09:38 02/23/21 09:22 02/23/21 09:22 02/23/21 09:22 Weight: 232 lb 7.559 oz Body Mass Index (BMI) 45.3 Charges/Coding Visit Charges Office Visits / Consults: [id number] OV L3 Est Physical Exam Const alert, no apparent distress and healthy appearing General Appearance: cooperative, comfortable and well kempt Nutritional Appearance: obese HEENT Head and Scalp: normocephalic and atraumatic Neck supple Chest Nipple/Areola: No nipple discharge Resp normal respiratory effort Extremity Peripheral Pulses: Yes dorsalis pedis pulses present bilateral 2+ Skin Wounds: Negative for wounds noted Wound Narrative: Patient's right breast wound is healed today. There are no open wounds. She has some dry tissue present where wound has healed. Neuro moves all extremities Psych mental status grossly normal, cooperative and affect normal Debridement Note Debridement Note Post-Debridement Measurements and Additional Note: Post-Debridement Measurements/Treatment WC - Nurse 1 - General Ulcer Assessment Start: 02/02/21 09:35 Freq: Status: Active Protocol: ROMEO Activity Type Activity Date Activity User E-Sign Co-Sign Detail Recorded Client Recorded Date Recorded By Document 02/02/21 09:35 ML [id number] 02/02/21 09:40 ML Document 02/09/21 09:38 KR [id number] 02/09/21 09:39 KR Document 02/23/21 09:22 JF [id number] 02/23/21 09:30 JF 02/02/21 02/09/21 02/23/21 09:35 09:38 09:22 - Today's Visit Information Type of service Follow-up Visit Follow-up Visit Follow-up Visit (Physician/LOGISTICS SUPPORT (Physician/LOGISTICS SUPPORT (Physician/LOGISTICS SUPPORT ) ) ) Arrival Mode Ambulatory Ambulatory Ambulatory Accompanied by mom Patient Identification Verified (Name & Yes Yes No ) Patient Requires Transmission-Based No No Precautions Safety Precautions NA Height and Weight Body Mass Index (BMI) 45.3 45.3 45.3 BMI Classification Obese Obese Obese Vital Signs Temperature (97.8 F-99.1 F) 97.6 F L 97.6 F L Temperature Source Temporal Temporal Pulse Rate (60-100) 84 62 76 Pulse Location Monitor Monitor Monitor Respiratory Rate (12-18) 15 16 Blood Pressure (90/60-120/80) 138/82 H 131/68 H 111/89 H Blood Pressure Mean (mm Hg) 100 89 96 Source Monitor Monitor Monitor Position Sitting Semi-Fowlers Semi-Fowlers Blood Pressure Location Left Arm Left Arm History Since Last Visit- (Skip if this is Patient's initial visit) Have you changed medications since your No No No last visit? Any new allergies or adverse reactions No No Had a fall/change in ADL's that may No No No increase risk of falls Signs or symptoms of abuse and/or No No No neglect since last visit Have you been in the hospital since your No No No last visit? Has dressing in place as prescribed Yes Yes Yes Has compression in place as prescribed N/A N/A N/A Has offloadiing in place as prescribed N/A N/A N/A Experienced any changes in pain level or No No No management Left Footwear Regular Shoe Regular Shoe Regular Shoe Right Footwear Regular Shoe Regular Shoe Regular Shoe Pain Scale: 0-10 Numeric Is Patient Pain Free? Yes Yes WC - Nurse 1 - General Ulcer Measurement Start: 02/02/21 09:35 Freq: Status: Active Protocol: Activity Type Activity Date Activity User E-Sign Co-Sign Detail Recorded Client Recorded Date Recorded By Document 02/02/21 09:35 ML [id number] 02/02/21 09:40 ML Document 02/09/21 09:38 KR [id number] 02/09/21 09:39 KR Document 02/23/21 09:22 JF [id number] 02/23/21 09:30 JF 02/02/21 02/09/21 02/23/21 09:35 09:38 09:22 Wound Center Nurse 1 #1 R Breast -Combined with other wound No -Current Size (cm) - Length 1 0.6 0 -Current Size (cm) - Width 1.5 3 0 -Current Size (cm) - Depth 0.1 0.1 0 -Total Square Cm 1.5 1.8 0 -Photo Taken Yes -Epithelialization Large 67-100% -Exudate Amt Medium Small -Exudate Type Serosanguineous Serosanguineous -Wound Margin Distinct, Distinct, Outline Outline Attached Attached -Granulation Amt Medium (34-66%) Medium (34-66%) -Granulation Quality Red Red -Slough/Fibrin Yes -Necrosis Amt Medium (34-66%) -Necrotic Tissue Type Adherent Slough -Texture (Cassie-wound Skin Appearance) No Abnormality Assessed, Scarring -Moisture (Cassie-wound Skin Appearance) No Abnormality No Abnormality, Assessed -Color (Cassie-wound Skin Appearance) No Abnormality -Temperature (Cassie-wound Skin No Abnormality No Abnormality Appearance) (Pt Warm) (Pt Warm) -Tenderness on Palpation (Cassie-wound No Skin Appearance) -Ulcer Cleansing Rinsed/ Rinsed/ Irrigated with Irrigated with Saline Saline -Foul Odor after Cleansing No No -Anesthetic Used 5% Lidocaine 5% Lidocaine Gel Gel Lower Limb Edema Present NA WC - Nurse 2 - General Ulcer CM Notes Start: 02/02/21 09:35 Freq: Status: Active Protocol: Activity Type Activity Date Activity User E-Sign Co-Sign Detail Recorded Client Recorded Date Recorded By Document 02/02/21 12:15 PL [id number] 02/02/21 12:20 PL Document 02/09/21 12:43 PL [id number] 02/09/21 12:46 PL Document 02/23/21 10:02 [id number] 02/23/21 10:03 02/02/21 02/09/21 02/23/21 12:15 12:43 10:02 Wound Center Nurse 2 #1 R Breast -Time 09:50 09:40 -Correct Patient Yes Yes No -Correct Side, Site, Position Yes Yes No -Correct Procedure Yes Yes No -Procedure Performed Yes Yes No -Type of Procedure Debridement Debridement -Clinical Debridement Subcutaneous Subcutaneous -Tissue Removed Subcutaneous Subcutaneous -Post Debridement (cm) - Length 1 0.6 0 -Post Debridement (cm) - Width 1.5 3.0 0 -Post Debridement (cm) - Depth 0.1 0.1 0 -Total Square (Post) (cm) 1.5 1.80 0 -Area of Debridement (cm) - Length 1 0.6 0 -Area of Debridement (cm) - Width 1.5 3.0 0 -Total Square (Area) (cm) 0 1.80 0 -Tunneling No No -Undermining/Tunneling No -Circular Undermining No -Wound/Ulcer Outcome Not Healed Healed- Epithelialized -Ulcer Cleansing Rinsed/ Rinsed/ Irrigated with Irrigated with Saline Saline -Foul Odor after Cleansing No No -Bioengineered Tissue No No -Bleeding Controlled with Pressure -Treatment Response Procedure Tolerated Well -Debridement - Subq, 1st 20sq cm Yes Yes Pain Scale: 0-10 Numeric Is Patient Pain Free? Yes Yes Yes - Nurse 3 - General Ulcer D/C NN Start: 02/02/21 09:35 Freq: Status: Active Protocol: Activity Type Activity Date Activity User E-Sign Co-Sign Detail Recorded Client Recorded Date Recorded By Document 02/02/21 10:07 ML [id number] 02/02/21 10:08 ML Document 02/23/21 10:04 JF [id number] 02/23/21 10:05 JF 02/02/21 02/23/21 10:07 10:04 Wound Care Nurse 3 #1 R Breast -Ulcer Cleansing Rinsed/ Irrigated with Saline -Primary Dressing Applied Aquacel AG 4x4 -Primary Dressing Covered/Secured with Dry Gauze, Secured with Tape -Aquacel AG 4x4 1 Pain Scale: 0-10 Numeric Is Patient Pain Free? Yes WC - Visit Discharge Discharge Condition Stable Ambulatory Status Ambulatory Ambulatory Transportation Private Auto Accompanied by mom Medication Reconcilliation completed & No provided to patient/care provider Clinical Summary of Care Provided Yes Yes Notes: Collagen hydrogel to dry areas to right breast area. No debridement was completed: No debridement was completed today Assessment/Plan Assessment/Plan (1) Open breast wound: CODE(S): S21.009A - Unspecified open wound of unspecified breast, initial encounter QUALIFIERS: Encounter type: initial encounter Laterality: right Qualified Code(s): S21.001A - Unspecified open wound of right breast, initial encounter (2) Nonhealing nonsurgical wound with fat layer exposed: CODE(S): T14.8XXA - Other injury of unspecified body region, initial e ncounter PLAN: Patient right breast wound is healed today. No debridement performed. Hydrogel applied to the right breast and covered with gauze. At home wound-care instructions: Apply a thin layer of hydrogel to the breast daily and cover with gauze. Wash breast daily with antibacterial soap and water, rinse and dry thoroughly before applying hydrogel. Keep the breasts clean and dry. Avoid prolonged exposure to moisture/perspiration. Allow warm water to hit the right breast scar tissue in the shower, and massage gently. Avoid scratching or picking at the breast. You may resume wearing a light, cotton bra. Avoid compressive/restrictive sports bras and avoid bras containing under-wire. Follow-up: Return to the Wound Healing Center as needed should wounds reopen or new wounds occur. Note: [employer] speech recognition executor of estate software was used to create portions of this document. Sound-alike and misspelled words, as well as other executor of estate errors may be contained in the documentation.
== END 2021-02-28 23:59 ==
LOC: WC 09:00
PROVIDERS: PCP Family Medicine; Referring Provider Nurse Practitioner Women's Health; Visit Provider Nurse Practitioner Family
DX: S21.001A Unspecified open wound of right breast, initial encounter (principal); T14.8XXA Other injury of unspecified body region, initial encounter; R62.50 Unspecified lack of expected normal physiological development in childhood; Z88.2 Allergy status to sulfonamides
CPT/HCPCS: 11042; 99213; G0463

== ENCOUNTER 2023-02-04 11:47 | Emergency (ER) | payer OTHER, MEDICAID, SELFPAY ==
[2023-02-04 11:47] VITALS: BP 171/85; PULSE 114; RESP 16; TEMP 37; O2SAT 99; BMI 48.6
--- NOTE | 2023-02-04 11:52 | ED.RN ---
Pt attends [employer], injury occurred while there. Staff member who accompanied pt to ED is unsure if this visit will be worker's comp, unsure if pt is actually considered an employee vs student. Staff member will call nursing staff at [facility] for further info, mother is coming to ED as well. JOIE initiated.
--- NOTE | 2023-02-04 12:03 | EDS_ITS ---
HPI History of Present Illness Chief Complaint: Laceration [facility] Medical History (Updated 02/04/23 @ 13:[address] Tavo Mayorga, DO) Developmental delay, mild
--- NOTE | 2023-02-04 12:03 | EX.ED.GENINJ ---
HPI History of Present Illness Chief Complaint: Laceration [facility] Medical History (Updated 02/04/23 @ 13:[address] Tavo Mayorga, DO) Developmental delay, mild Dysmenorrhea Home Medications multivitamin with folic acid 400 mcg tablet 1 tab PO DAILY 12/26/14 [History Last Taken Unknown] norgestimate 0.25 mg-ethinyl estradiol 35 mcg tablet 1 tab PO DAILY Take active pills only for continuous cycling #84 tabs 03/14/22 [Rx Last Taken Unknown] Allergy/AdvReac Type Severity Reaction Status Date / Time Sulfa (Sulfonamide Allergy Unknown Verified 02/04/23 11:49 Antibiotics) Social History current occupational status: employed current occupation: [employer] Smoking Status: Never smoker alcohol intake: never substance use type: does not use seatbelt use: always do you feel safe at home: Yes EXAM Physical Exam Const Vital Signs: 02/04/23 11:47 Temperature 98.6 F Temperature Source Temporal Pulse Rate 114 H Respiratory Rate 16 Blood Pressure 171/85 H Blood Pressure Mean 113 Pulse Ox 99 Oxygen Delivery Method Room Air [facility] MDM MDM Narrative Medical decision making narrative: HISTORY OF PRESENT ILLNESS: 32 F here with left second digit laceration. Last tetanus unknown. REVIEW OF SYSTEMS: Pertinent positives: Laceration Pertinent negatives: Loss of sensation PHYSICAL EXAM: Nursing triage notes reviewed, Vital signs reviewed Constitutional: please see mdm Extremities: Laceration as below, intact flexion and flexor digitorum profundus and flexor digitorum superficialis, intact extensor tendon mechanism. Neuro: Intact 5/5 strength with ok sign (median), intact finger abduction (ulnar) intact wrist extension (radial n). Intact sensation in the radial, ulnar, and median nerve distributions. Skin: Curvilinear laceration noted to the distal tip of the second digit, bleeding controlled MEDICAL DECISION MAKING: Chief Complaint: Finger laceration External records reviewed: Unknown last tetanus Factors affecting care: Autism Social determinants of health: Autism History obtained from others: The patient's caregiver and mother Consults: None ALL IMAGES HAVE BEEN PERSONALLY REVIEWED AND INTERPRETED BY MYSELF. MDM Narrative: Patient was hemodynamically stable, afebrile, nontoxic-appearing. No obvious focal neurodeficit in the left upper extremity, no obvious tendinous involvement I considered the following differential diagnosis: Finger laceration, open fracture The patient suffered lacerations to the left second digit distal phalanx There is no evidence to suggest foreign bodies were history and exam. I obtained an x-ray which showed no evidence of radiopaque foreign body or evidence of fracture. There was evidence of devitalized tissue and essentially a skin avulsion of the distal tip of the left second digit. This devitalized tissue was removed to prevent secondary tissue distraction, inflammation and necrosis and to decrease infection risk. Visual and tactile exams are unremarkable. There was no evidence of neurovascular injury. Patient had a normal distal vascular exam, and had full normal motor and sensory exams. There was also no evidence of tendon injury, with normal distal full range of motion, flexion, extension, abduction, abduction. There is no evidence of local joint space involvement at this time patient was irrigated with copious sterile normal saline. The involved extremity was soaked in chlorhexidine. We will give prophylactic antibiotics to prevent infection. We will give Keflex. The patient was given signs and symptoms warnings for infection, such as increasing pain, redness, swelling, associated heat, pus or fever. Patient was given instructions for timely follow-up for removal. Patient agreed with the plan of care The patient and/or family, caregivers express understanding. The patient and/or family, caregivers agrees with the plan. Total critical care time today provided was at least 0 minutes. This excludes separately billable procedures. Critical care time if documented is secondary to the patient having high probability of clinically significant/life threatening deterioration in the patient's condition which required my urgent intervention. Shared decision making: I will have a discussion with the patient and or visitors regarding risk/benefits of further testing or admission. They will be made aware of of the risk/benefits inherent in this decision they will be given the opportunity to voice understanding. Radiography Diagnostic Testing: Clinical Impression(s) from Imaging Studies Hand X-Ray 02/04/23 12:19 IMPRESSION: Laceration overlying the distal phalange of the index finger. Electronically Signed: Arsi Begum MD at 13:13 EDT , X-ray left hand was personally reviewed by myself. There is no evidence of obvious radiopaque foreign body or distal phalanx fracture at this time Discharge Plan Triage Chief Complaint: Laceration ED Provider: Tavo Mayorga Dx/Rx/DC Orders Clinical Impression: Avulsion of finger Instructions: ED Laceration Extremity Prescriptions: No Action multivitamin with folic acid 1 TABLET tablet 1 tab PO DAILY norgestimate-ethinyl estradiol 0.25-35 mg-mcg tablet 1 tab PO DAILY Qty: 84 5RF Primary Care Provider: Jame Avendano Referrals: Jame Avendano MD [Primary Care Provider] - Activity Restrictions/Additional Instructions: Thank you for trusting us with your care today! Please take Tylenol (2 pills, 650 mg), ibuprofen (2 pills, 400 mg) every 6 hours as needed for pain and fever control. Please take antibiotics as prescribed. Please complete entire course. Please return to the emergency department if your symptoms change or worsen. Specifically look for signs of infection which include redness, pain out of proportion, bleeding, white-yellow discharge. You may return to work as soon as you feel able. A work note is been provided. You may return to work with augmented activities as tolerated. Please follow with your primary care physician for further outpatient evaluation and management. Disposition Disposition: Home, Self Care
--- NOTE | 2023-02-04 12:19 | RAD_ITS ---
STUDY: X-RAY - LEFT HAND REASON FOR EXAM: Female, 32 years old. Finger laceration TECHNIQUE: 2 view(s) of the hand. COMPARISON: None. FINDINGS: Normal radiocarpal articulation. Normal distal radioulnar joint. Normal visualized carpal bones. Normal carpal articulations Normal carpometacarpal articulation of the thumb. Normal second through fifth carpometacarpal joints. Normal metacarpi. Normal metacarpophalangeal joint of the thumb. Normal interphalangeal joint of the thumb. Normal proximal and distal phalanges of the thumb. Normal metacarpophalangeal joints of the second through fifth fingers. Normal proximal and distal interphalangeal joints of the second through fifth fingers. Normal phalanges of the second through fifth fingers. Soft tissue laceration overlying the distal phalanx of the index finger. No radiopaque foreign body is seen. RAD/Hand 2 Views IMPRESSION: Laceration overlying the distal phalange of the index finger. Electronically Signed: Aris Begum MD at 13:13 EDT ,
[2023-02-04] MEDS: Diphth,Pertuss(Acell),Tet Vac 0.5 ML Vial IM (13:29)
== END 2023-02-04 13:59 | disposition home or self-care (01) ==
PROVIDERS: Emergency Provider Emergency Medicine; PCP Family Medicine; Visit Provider Emergency Medicine
DX: S61.211A Laceration without foreign body of left index finger without damage to nail, initial encounter (principal); F84.0 Autistic disorder; W26.8XXA Contact with other sharp object(s), not elsewhere classified, initial encounter; Z23 Encounter for immunization
CPT/HCPCS: 73120; 90471; 90715; 99282

== ENCOUNTER → 2024-06-07 | Outpatient (CLI) | payer MEDICAID, SELFPAY | END | disposition home or self-care (01) | LOC: WOBLAB 10:28 | PROVIDERS: PCP Family Medicine; Referring Provider Nurse Practitioner Women's Health; Visit Provider Nurse Practitioner Women's Health | DX: Z02.82 Encounter for adoption services (principal) | CPT/HCPCS: 36415 ==